=== PATIENT | male | born 1985 | race Caucasian/White ===

== ENCOUNTER 2018-06-23 00:38 | Emergency (ER) | payer OTHER ==
[2018-06-23] MEDS ORDERED: IBUPROFEN 600 MG TABLET PO ONE (00:49)
[2018-06-23] MEDS ORDERED: ACETAMINOPHEN 325 MG TABLET PO ONE (00:49)
--- NOTE | 2018-06-23 01:12 | ER Document Report ---
ED General - General Stated Complaint: RIGHT ANKLE INJURY Time Seen by Provider: 06/23/18 00:49 Notes: Patient is a 33-year-old male without chronic medical problems who presents after a mechanical fall in which he missed a step, twisting his right ankle and landing onto his right hip. Since that time he has had a dull, throbbing, constant pain to both his right ankle and right hip. Walking worsens the pain but he is able to bear weight. He did not hit his head or neck. No history of similar injuries in the past. He has not trying to improve the pain prior to arrival. - Related Data Allergies/Adverse Reactions: No Known Allergies Allergy (Unverified 03/18/13 20:57) Past Medical History - General Information source: Patient - Social History Smoking Status: Never Smoker Frequency of alcohol use: None Drug Abuse: None Family History: Reviewed & Not Pertinent - Past Medical History Cardiac Medical History: Reports: Hx Hypercholesterolemia, Hx Hypertension GI Medical History: Reports: Hx Gastroesophageal Reflux Disease - Immunizations Hx Diphtheria, Pertussis, Tetanus Vaccination: Yes Review of Systems - Review of Systems Notes: Constitutional: Negative for fever. Eyes: Negative for visual changes. ENT: Negative for facial injury Cardiovascular: Negative for chest injury. Respiratory: Negative for shortness of breath. Gastrointestinal: Negative for abdominal injury. Genitourinary: Negative for genital injury Musculoskeletal: Positive for ankle and right hip injury Skin: Negative for laceration/abrasions. Neurological: Negative for head injury. Physical Exam - Vital signs Notes: PHYSICAL EXAMINATION: GENERAL: Well-appearing, well-nourished and in no acute distress. HEAD: Atraumatic, normocephalic. EYES: sclera anicteric, conjunctiva are normal. ENT: Moist mucous membranes. NECK: Normal range of motion LUNGS: Normal work of breathing HEART: 2+ radial pulses bilaterally, 2+ DP pulse on the right EXTREMITIES: Mild pain on palpation of the lateral malleolus on the right. Normal plantar and dorsiflexion. Mild pain with external rotation of the right hip. Extremity examination is otherwise unremarkable NEUROLOGICAL: No focal neurological deficits. Moves all extremities spontaneously and on command. PSYCH: Normal mood, normal affect. SKIN: Warm, Dry, normal turgor, no rashes or lesions noted. Course - Re-evaluation Re-evalutation: 06/23/18 00:53 History and exam was consistent with soft tissue injury to the right hip and ligamentous strain of the right ankle. X-rays affected area without any evidence of acute fractures or dislocations. Patient able to bear weight. He has had improvement of his symptoms of receiving Tylenol and ibuprofen. At this time will discharge with return precautions and follow-up recommendations. Verbal discharge instructions given a the bedside and opportunity for questions given. Medication warnings reviewed. Patient is in agreement with this plan and has verbalized understanding of return precautions and the need for primary care follow-up in the next 24-72 hours. - Diagnostic Test Radiology reviewed: Image reviewed, Reports reviewed Radiology results interpreted by me: 06/23/18 00:54 Right hip x-ray: No acute fracture or dislocation Right ankle x-ray: No acute fracture or dislocation Discharge - Discharge Clinical Impression: Right ankle injury Qualifiers: Encounter type: initial encounter Qualified Code(s): S99.911A - Unspecified injury of right ankle, initial encounter Fall Qualifiers: Encounter type: initial encounter Qualified Code(s): W19.XXXA - Unspecified fall, initial encounter Injury of right hip Qualifiers: Encounter type: initial encounter Qualified Code(s): S79.911A - Unspecified injury of right hip, initial encounter Condition: Good Disposition: HOME, SELF-CARE Additional Instructions: Your x-ray does not show any acute fracture today. You likely have a ligamentous strain. You should continue to take anti-inflammatories such as ibuprofen 600 mg every 6 hours. Continue to apply ice to the area is much your able. Please follow-up with your primary care physician if you do not have improving your symptoms in the next 1-2 weeks. Please return immediately if you develop weakness, numbness, spreading redness from the area, or any other symptoms that are concerning to you. Referrals: GISELA KAUR MD [Primary Care Provider] - Follow up as needed
--- NOTE | 2018-06-23 01:49 | RADIOLOGY REPORT (SQ) ---
CLINICAL DATA: 33-year-old male who rolled his ankle coming off of a step TECHNICAL DATA: Three x-ray views of the right ankle were performed on 06/23/2018 at 1:39 AM. COMPARISONS: None FINDINGS: There is no evidence of fracture or dislocation. There is no significant arthritis or degenerative change. No focal lytic or sclerotic bone lesions are seen. Bone mineralization is normal There is mild lateral soft tissue swelling. IMPRESSION: No evidence of acute osseous injury involving the right ankle. There is mild lateral soft tissue swelling.
--- NOTE | 2018-06-23 01:52 | RADIOLOGY REPORT (SQ) ---
CLINICAL DATA: 33-year-old male status post fall with right hip injury TECHNICAL DATA: Two x-ray views of the right hip were performed on 06/23/2018 at 1:42 AM. An AP pelvis and frog-leg lateral view of the right hip were performed. COMPARISONS: None FINDINGS: There is no evidence of fracture or dislocation. There is no significant arthritis or degenerative change. No focal lytic or sclerotic bone lesions are seen. Bone mineralization is normal No focal soft tissue abnormalities are identified. IMPRESSION: No evidence of acute osseous injury involving the right hip.
[2018-06-23 02:30] VITALS: BP 123/78
== END 2018-06-23 02:30 | disposition home or self-care (01) ==
LOC: ER 00:38
DX: S99.911A Unspecified injury of right ankle, initial encounter (principal); S79.911A Unspecified injury of right hip, initial encounter; M25.571 Pain in right ankle and joints of right foot; M25.551 Pain in right hip; W19.XXXA Unspecified fall, initial encounter; Y93.89 Activity, other specified; I10 Essential (primary) hypertension
CPT/HCPCS: 99283

== ENCOUNTER 2018-10-14 08:22 | Day surgery (SDC) | payer OTHER ==
[~2018-10-14 08:22] MED LIST: CARBOXYMETHYLCELLULOSE SOD 0.5% 0.4 ML DROPERETTE ONE; CEFAZOLIN 2 GM/D5W RTU 2 GM/50 ML RTUPB IV SCH; DEXAMETHASONE SOD PHOS INJ 10 MG/1 ML VIAL ONE; DEXMEDETOMIDINE INJ 80 MCG/20 ML VIAL IV ONE; FENTANYL CITRATE INJ/PF 100 MCG/2 ML AMPUL ONE; HYDROMORPHONE HCL INJ/PF 2 MG/ML AMPULE ONE; MIDAZOLAM 2 MG/2 ML INJ ONE; ONDANSETRON HCL INJ/PF 4 MG/2 ML SDV ONE; PROPOFOL INJ 200 MG/20 ML VIAL IV ONE; ROCURONIUM BROMIDE INJ 50 MG/5 ML VIAL IV ONE; SUCCINYLCHOLINE CHLORIDE INJ 200 MG/10 ML VIAL ONE
[2018-10-14] MEDS ORDERED: COCAINE HCL 4% TOPICAL SOLN 4 ML ONE (09:45)
[2018-10-14] MEDS ORDERED: BUPIVACAINE HCL 0.5%/EPI 1:200000 INJ 1.8 ML CARTRIDGE ONE (09:45)
[2018-10-14] MEDS ORDERED: OXYMETAZOLINE HCL 0.05% NASAL SPRAY 15 ML BOTTLE ONE (09:45)
[2018-10-14] MEDS ORDERED: LIDOCAINE 2%/EPINEPHRINE INJ 1.7 ML CARTRIDGE ONE (09:45)
[2018-10-14] MEDS ORDERED: DIPHENHYDRAMINE HCL 50 MG/ML VIAL ONE (10:09)
[2018-10-14] MEDS ORDERED: BACITRACIN ZINC OINTMENT 15 GM ONE (11:22)
[2018-10-14] MEDS ORDERED: OXYCODONE-ACETAMINOPHEN 5-325 MG TABLET ONE (12:34)
--- NOTE | 2018-10-14 12:42 | [facility] OPERATIVE REPORT E ---
[facility] Operative Report NAME: ROBIN WILLIAMSON AGE: 33Y DATE OF SURGERY: 10/14/2018 ROOM: HISTORY: A 33-year-old male with a history of nasal dyspnea. Physical exam revealed a deviated nasal septum and inferior turbinate hypertrophy. The patient presents today for a septoplasty and inferior turbinoplasty. Informed consent was obtained from the patient. PREOPERATIVE DIAGNOSES: 1. Deviated nasal septum. 2. Inferior turbinate hypertrophy. POSTOPERATIVE DIAGNOSES: 1. Deviated nasal septum. 2. Inferior turbinate hypertrophy. PROCEDURES: 1. Nasal septoplasty. 2. Inferior turbinoplasty (intramural cauterization). SURGEON: ALONDRA TOMPKINS MD ANESTHESIA: General via endotracheal intubation. DESCRIPTION OF PROCEDURE: After receiving informed consent from the patient, he was taken to the operating room and placed supine on the operating table. After successful induction and intubation by Anesthesia, pledget soaked with 4% lidocaine placed into each nasal cavity for approximately 5 minutes, after which time they were withdrawn and the nasal septum along with the inferior turbinates were injected with 2% Xylocaine with 100,000 epinephrine. Pledgets were replaced. The patient was then prepped and draped in sterile fashion. Pledgets were removed and #15 blade used to make a hemitransfixion incision on the left side. This was carried down onto the nasal sill. Next, using a Prince and then a [place] elevator, mucoperiosteal flap was elevated back to the sphenoid rostrum and down onto the nasal floor. The ostial cartilaginous junction was using a D knife and then a mucoperiosteal flap was elevated on the right side. Next, using Edward scissors, horizontal cuts were made in the perpendicular plated ethmoid superiorly and inferiorly. Then, this piece of deflection was removed. Next, we then identified a vomer ethmoid spur. The mucosa around there was carefully dissected free. Using the V chisel, the vomer ethmoid spur was removed. Attention was then directed anteriorly using a D knife and inferior cartilaginous spur was removed and then a V chisel was used to remove a maxillary crest spur. The septum was viewed with the flaps in place, found to be relatively straight. Next, the hemitransfixion incision was closed using 4-0 chromic and a 4-0 plain gut whipstitch was used to secure the septal flaps. Attention was then directed to the inferior turbinates where intramural cauterization was performed on both inferior turbinates using the [place] set at 10, and after this was done, the inferior turbinates were medialized and then lateralized with a Rima elevator. Osman splints coated with bacitracin ointment were placed into each nasal cavity and secured with a 3-0 Prolene and then cottonoid soaked with Afrin placed into each nasal cavity. The patient was then given back to Anesthesia who successfully extubated the patient without any complications. The estimated blood loss was about 15 mL fluid, about 14 mL crystalloid. The patient was then transferred to the post-anesthesia care unit in stable condition with spontaneous respirations and no complications. DICTATING PHYSICIAN: ALONDRA TOMPKINS M.D. [id number] PHY#: [id number] ID: [id number] JOB#: [id number] ACCT: [id number] cc:ALONDRA TOMPKINS MD > MTDD
[2018-10-14] MEDS ORDERED: FENTANYL CITRATE INJ/PF 100 MCG/2 ML AMPUL ONE (13:22)
== END 2018-10-14 14:05 | disposition home or self-care (01) ==
LOC: SC 08:22
PROVIDERS: ATTEND Otolaryngology
DX: J34.2 Deviated nasal septum (principal); J34.3 Hypertrophy of nasal turbinates; K21.9 Gastro-esophageal reflux disease without esophagitis; G43.909 Migraine, unspecified, not intractable, without status migrainosus; Z79.899 Other long term (current) drug therapy; Z79.1 Long term (current) use of non-steroidal anti-inflammatories (NSAID); Z87.891 Personal history of nicotine dependence
CPT/HCPCS: 30520; 30802; J2250; J3490 ×7; J1200; J3010; J1170; J0330; J2405; J2704; J1100; J0690; 160